=== PATIENT | female | born 1980 | race Caucasian/White ===

== ENCOUNTER 2021-12-18 13:14 | Emergency (ER) | payer SELFPAY ==
[~2021-12-18] VITALS: Ht 152.4 cm; Wt 89.8 kg
[~2021-12-18 13:14] MED LIST: FERR325E14 PO; IBUP-1842 PO; PREN-385 PO
[2021-12-18 13:17] VITALS: BP 139/91
[2021-12-18 13:59] LABS: BASOPHILS # (AUTO) 0.1 K/uL (0.00-0.22); BASOPHILS % (AUTO) 0.4 % (0.0-2.0); EOSINOPHILS # (AUTO) 0.3 K/uL (0-0.4); EOSINOPHILS % (AUTO) 2.2 % (0.0-4.0); HEMATOCRIT 36.1 % (36-48); HEMOGLOBIN 11.8 g/dL (12.0-16.0); LYMPHOCYTES # (AUTO) 2.3 K/uL (2.5-16.5); LYMPHOCYTES % (AUTO) 19.5 % (20.5-51.1); MEAN CORPUSCULAR HEMOGLOBIN 24 pg (27-31); MEAN CORPUSCULAR HGB CONC 33 g/dL (33-37); MEAN CORPUSCULAR VOLUME 72.5 fL (80-94); MONOCYTES # (AUTO) 0.6 K/uL (0.8-1.0); MONOCYTES % (AUTO) 4.9 % (1.7-9.3); NEUTROPHILS # (AUTO) 8.8 K/uL (1.8-7.7); PLATELET COUNT (AUTO) 412 K/uL (140-450); RED BLOOD CELL COUNT(AUTO) 4.97 MIL/uL (4.20-5.40); RED CELL DISTRIBUTION WIDTH 18.5 % (11.6-13.7); WHITE BLOOD COUNT (AUTO) 12.1 K/uL (4.8-10.8)
[2021-12-18 14:00] LABS: APPEARANCE,URINE CLOUDY (CLEAR); BILIRUBIN,URINE NEGATIVE (NEGATIVE); BLOOD, URINE 3+ (NEGATIVE); COLOR,URINE RED (YELLOW); LEUKOCYTE ESTERASE ,URINE 2+ (NEGATIVE); NITRITE, URINE NEGATIVE (NEGATIVE); UGLUCOSE NEGATIVE (NEGATIVE)
[2021-12-18 14:11] LABS: RBC,URINE 50-80 /HPF (0-5)
[2021-12-18 14:12] LABS: URINE AMORPHOUS URATE 1+ /HPF (None Seen)
[2021-12-18] MEDS ORDERED: NITR100C7 PO (15:49)
[2021-12-18 16:05] VITALS: BP 115/70
--- NOTE | 2021-12-18 16:06 | NUR ---
Patient discharged with v/s stable. Written and verbal after care instructions given and explained. Patient verbalized understanding. Ambulatory with steady gait. All questions addressed prior to discharge. Advised to follow up with PMD.
== END 2021-12-18 16:06 | disposition home or self-care (01) ==
LOC: MED 13:14
DX: O20.0 Threatened abortion (principal); O23.41 Unspecified infection of urinary tract in pregnancy, first trimester; E11.9 Type 2 diabetes mellitus without complications; Z79.899 Other long term (current) drug therapy; Z3A.01 Less than 8 weeks gestation of pregnancy; Z98.890 Other specified postprocedural states
CPT/HCPCS: 36415; 76817; 81001; 84702; 85025; 87086; 99284; Q0092

== ENCOUNTER 2022-08-29 17:28 | Emergency (ER) | payer SELFPAY ==
[~2022-08-29] VITALS: Ht 151.4 cm; Wt 95.0 kg
[~2022-08-29 17:28] MED LIST changes: +NITR100C7 PO
[2022-08-29 17:40] VITALS: BP 145/97
--- NOTE | 2022-08-29 18:00 | NUR ---
42/F WALKED IN C/O HEMATURIA AND LOW ABD PAIN ACCOMPANIED BY LOW BACK PAIN X 5 DAYS. DENIES NVD. PMH: DENIES
[2022-08-29 18:02] LABS: APPEARANCE,URINE CLOUDY (CLEAR); COLOR,URINE SLIGHT BLOODY (YELLOW)
[2022-08-29 18:03] LABS: PH,URINE 6.5 (5.0-9.0)
[2022-08-29 18:04] LABS: BILIRUBIN,URINE NEGATIVE (NEGATIVE); BLOOD, URINE LARGE (NEGATIVE); LEUKOCYTE ESTERASE ,URINE 3+ (NEGATIVE); NITRITE, URINE NEGATIVE (NEGATIVE); UGLUCOSE NEGATIVE (NEGATIVE)
[2022-08-29 18:16] LABS: RBC,URINE 20-50 /HPF (0-5)
[2022-08-29 18:18] LABS: OTHER CASTS, URINE None Seen /LPF (None Seen)
--- NOTE | 2022-08-29 19:09 | NUR ---
Dr. Goins explained treatment plans.
--- NOTE | 2022-08-29 19:10 | NUR ---
Received report from HENRI Richards and formerly [facility].
--- NOTE | 2022-08-29 19:58 | NUR ---
Blood for labwork drawn by administrative dietitian. Patient tolerated well.
[2022-08-29 20:14] LABS: BASOPHILS % (AUTO) 0.3 % (0.0-2.0); EOSINOPHILS # (AUTO) 0.3 K/uL (0-0.4); EOSINOPHILS % (AUTO) 2.4 % (0.0-4.0); HEMATOCRIT 37.6 % (36-48); HEMOGLOBIN 12.4 g/dL (12.0-16.0); LYMPHOCYTES # (AUTO) 3.1 K/uL (2.5-16.5); MEAN CORPUSCULAR HEMOGLOBIN 25 pg (27-31); MEAN CORPUSCULAR HGB CONC 33 g/dL (33-37); MEAN CORPUSCULAR VOLUME 75.2 fL (80-94); MONOCYTES # (AUTO) 0.8 K/uL (0.8-1.0); MONOCYTES % (AUTO) 5.6 % (1.7-9.3); NEUTROPHILS # (AUTO) 9.4 K/uL (1.8-7.7); NEUTROPHILS % (AUTO) 68.7 % (42.2-75.2); PLATELET COUNT (AUTO) 390 K/uL (140-450); RED CELL DISTRIBUTION WIDTH 16.6 % (11.6-13.7); WHITE BLOOD COUNT (AUTO) 13.7 K/uL (4.8-10.8)
[2022-08-29] MEDS ORDERED: CEPH-588 PO (21:26)
[2022-08-29 21:36] VITALS: BP 132/82
== END 2022-08-29 21:36 | disposition home or self-care (01) ==
LOC: MED 17:28
DX: O23.11 Infections of bladder in pregnancy, first trimester (principal); O20.0 Threatened abortion; R31.9 Hematuria, unspecified; E11.9 Type 2 diabetes mellitus without complications; Z3A.09 9 weeks gestation of pregnancy; Z79.899 Other long term (current) drug therapy
CPT/HCPCS: 36415; 76801; 81001; 81025; 84702; 85025; 86900; 86901; 87086; 99284; Q0092